=== PATIENT | male | born 1965 | race African-American/Black ===

== ENCOUNTER 2020-11-13 10:40 | Inpatient (IN) | payer MEDICAID, OTHER ==
[~2020-11-13] VITALS: Ht 182.9 cm; Wt 104.8 kg
[2020-11-13] MEDS ORDERED: MORPHINE SULFATE 4 MG/ML CPJ (NOT FOR IM USE) IV ONE ×2 (13:00→13:45)
[2020-11-13 13:18] LABS: BASOPHILS % 1.5 % (0.0-2.0); EOSINOPHILS % 2.5 % (0.0-5.0); HEMATOCRIT. 36.1 % (42.0-52.0); LYMPHOCYTES % 21.7 % (20.0-50.0); MEAN CORPUSCULAR VOLUME 87.2 fL (80.0-94.0); MEAN PLATELET VOLUME 8.2 fl (7.4-10.4); MONOCYTES % 10.1 % (2.0-8.0); NEUTROPHILS % 64.2 % (40.0-76.0); PLATELET 282 x1000/uL (130-400); RED BLOOD CELL COUNT 4.14 mill/uL (4.7-6.1); RED CELL DISTRIBUTION WIDTH 15.2 % (11.6-14.6)
[2020-11-13 13:24] LABS: CHLORIDE 110 mEq/L (98-107)
[2020-11-13 13:29] LABS: INR 0.9; PROTHROMBIN TIME 10.1 sec (9.6-11.0)
[2020-11-13] MEDS ORDERED: DEXAMETHASONE 10 MG/ML VIAL IV ONE (14:15)
[2020-11-13] MEDS ORDERED: ACETAMINOPHEN 650MG SUPP PR PRN (15:15)
[2020-11-13] MEDS ORDERED: GUAIFENESIN 200MG/10ML SUGAR FREE UDC PO PRN (15:15)
[2020-11-13] MEDS ORDERED: DOCUSATE SODIUM 100MG CAPSULE PO PRN (15:15)
[2020-11-13] MEDS ORDERED: ACETAMINOPHEN 325MG TABLET PO PRN ×2 (15:15)
[2020-11-13] MEDS ORDERED: MORPHINE SULFATE 2 MG/ML CPJ (NOT FOR IM USE) IV PRN (15:15)
[2020-11-13] MEDS ORDERED: LORAZEPAM 0.5MG TABLET PO PRN (15:15)
[2020-11-13] MEDS ORDERED: MAGNESIUM/ALUMINUM HYDROXIDE/SIMETHICONE 30ML UDC PO PRN (15:15)
[2020-11-13] MEDS ORDERED: ONDANSETRON HCL 4MG/2ML INJ IV PRN (15:15)
[2020-11-13] MEDS ORDERED: DIPHENHYDRAMINE 50MG/ML VIAL IV PRN (15:15)
[2020-11-13] MEDS ORDERED: CLONIDINE 0.1MG TABLET PO PRN (15:15)
[2020-11-13] MEDS ORDERED: HYDROCODONE/ACETAMINOPHEN 5/325MG TABLET PO PRN (15:15)
[2020-11-13] MEDS ORDERED: IPRATROPIUM/ALBUTEROL 0.5-3(2.5)MG/3ML NEB HHN PRN (15:15)
[2020-11-13] MEDS ORDERED: NALOXONE HCL 0.4MG/ML VIAL IV PRN (15:30)
[2020-11-13 16:30] VITALS: BP 127/78
[2020-11-13] MEDS ORDERED: DEXT 5%/LACTATED RINGERS 1,000 ML IV SCH (16:45)
[2020-11-13 17:00] VITALS: BP 128/77
[2020-11-13 17:30] VITALS: BP 138/80
[2020-11-13 18:00] VITALS: BP_SYST 127; BP_SYST 139; BP_DIAS 67; BP_DIAS 71
[2020-11-13] MEDS ORDERED: DEXAMETHASONE 4MG/ML 1ML VIAL IV SCH (18:00)
== END 2020-11-13 19:00 | disposition left against medical advice (07) | DRG 347 ==
LOC: ER 10:51 → EDBEDREQTM 15:13 → EDBEDREQ 15:13 → EDBEDREQTM 15:18 → ENRESERV 15:30 → ER 15:42 → MICUNO 17:21
PROVIDERS: ADMIT Family Medicine Adult Medicine; ATTEND Family Medicine Adult Medicine
DX: M48.02 Spinal stenosis, cervical region (principal); S14.103A Unspecified injury at C3 level of cervical spinal cord, initial encounter; G82.52 Quadriplegia, C1-C4 incomplete; G95.19 Other vascular myelopathies; G99.2 Myelopathy in diseases classified elsewhere; F17.210 Nicotine dependence, cigarettes, uncomplicated; Z53.29 Procedure and treatment not carried out because of patient's decision for other reasons; W07.XXXA Fall from chair, initial encounter; Y93.89 Activity, other specified; Y92.89 Other specified places as the place of occurrence of the external cause; Y99.8 Other external cause status; G95.20 Unspecified cord compression
CPT/HCPCS: 36415; 71045; 72141; 73552; 73560; 80053; 85025; 93971; 99291; J1100; J2270